=== PATIENT | male | born 1935 | race Caucasian/White ===

== ENCOUNTER → 2021-12-29 15:40 | Outpatient (BNVA) | payer MEDICARE, SELFPAY | PROVIDERS: Family Provider Nurse Practitioner; Visit Provider Nurse Practitioner Family | DX: Z86.79 Personal history of other diseases of the circulatory system (principal) | CPT/HCPCS: 80053; 85025 ==

== ENCOUNTER → 2023-08-15 15:46 | Outpatient (BNVA) | payer MEDICARE, SELFPAY | PROVIDERS: Family Provider Nurse Practitioner; PCP Family Medicine; Visit Provider Family Medicine | DX: I25.10 Atherosclerotic heart disease of native coronary artery without angina pectoris (principal); I10 Essential (primary) hypertension | CPT/HCPCS: 80053; 80061; 83880; 84443; 85025 ==

== ENCOUNTER → 2023-10-28 11:30 | Outpatient (BNVA) | payer MEDICARE, SELFPAY | PROVIDERS: Family Provider Nurse Practitioner; PCP Family Medicine; Visit Provider Nurse Practitioner Family | DX: E55.9 Vitamin D deficiency, unspecified (principal); I10 Essential (primary) hypertension; Z86.79 Personal history of other diseases of the circulatory system | CPT/HCPCS: 80053; 82306; 82607; 84443; 85025 ==